=== PATIENT | female | born 1990 | race Hispanic/Latino ===

== ENCOUNTER → 2017-03-18 | Outpatient (CLI) | payer OTHER ==
--- NOTE | 2017-03-18 21:06 | US ---
EXAM DESCRIPTION: Breast,Right: Ultrasound CLINICAL HISTORY: 26 [facility]AST [place] COMPARISON: None. TECHNIQUE: Transcutaneous scanning of the right breast utilizing two-dimensional and Doppler modes. Scanning performed by the bias cutter only. FINDINGS: Scanning the right breast at the 400 clock position 4 cm from the nipple. A ridge of tissue is palpable. Findings are almost completely fibroglandular tissues with minimal fatty tissues. No discrete solid mass or cyst. No skin changes. No parenchymal edema or calcifications. Similar findings at the 600 clock position 4 cm from the nipple and at the 900 clock position 8 cm from the nipple. IMPRESSION: BI-RADS CATEGORY: 2 - BENIGN FINDINGS. FOLLOW UP: Routine digital bilateral screening, at age 41. The FINDINGS and the follow-up plan were reviewed in person with the patient after the examination.Written communication explaining the IMPRESSION and follow-up will be mailed to the patient and referring care provider. According to the [employer], yearly mammograms are recommended starting at age 40 and continuing as long as a woman is in good health. Any breast change noted on a breast self-exam should be reported promptly to the patient's healthcare provider. Breast MRI is recommended for women with an approximately 20-25% or greater lifetime risk of breast cancer, including women with a strong family history of breast or ovarian cancer and women who have been treated for Hodgkin's disease. A negative mammographic report should not delay tissue diagnosis in patients with significant clinical history or physical findings. Extremely dense breast tissue limits the sensitivity of digital mammography. Electronically signed by: Cong Calhoun MD 03/18/2017 9:05 PM [employer] Workstation: [id number]
== END | disposition home or self-care (01) ==
LOC: MAMMO 10:00
PROVIDERS: ATTEND Family Medicine
DX: N63.10 Unspecified lump in the right breast, unspecified quadrant (principal)

== ENCOUNTER 2018-10-22 16:23 | Emergency (ER) | payer MEDICAID, OTHER ==
[2018-10-22 19:39] VITALS: BP 106/60; TEMP 97.9; O2SAT 99
== END 2018-10-22 19:39 | disposition home or self-care (01) ==
LOC: ER 16:23
DX: O99.89 Other specified diseases and conditions complicating pregnancy, childbirth and the puerperium (principal); N89.8 Other specified noninflammatory disorders of vagina

== ENCOUNTER → 2018-10-24 | Outpatient (CLI) | payer MEDICAID | LOC: LAB.O 11:32 | PROVIDERS: ATTEND Obstetrics & Gynecology | DX: O20.0 Threatened abortion (principal) ==